=== PATIENT | female | born 1995 | race African-American/Black ===

== ENCOUNTER 2016-11-27 08:43 | Emergency (ER) | payer MEDICAID ==
[~2016-11-27] VITALS: Ht 160 cm; Wt 50.0 kg
[~2016-11-27 08:43] MED LIST: CEPH-460 PO; IBUP-232 PO; SENN1TAB PO
[2016-11-27 08:44] VITALS: BP 123/63; PULSE 72; RESP 16; TEMP 98.3; O2SAT 100
[2016-11-27 10:00] LABS: AUTOMATED NEUTROPHIL # 4.7 TH/MM3 (1.8-7.7); BASOPHIL % 0.6 % (0.0-2.0); EOSINOPHIL # 0.1 TH/MM3 (0-0.4); HEMO FLAGS DIFF FINAL; LYMPH % 28.6 % (9.0-44.0); LYMPHOCYTE # 2.1 TH/MM3 (1.0-4.8); MEAN CORPUSCULAR HEMOGLOBIN 25.7 PG (27.0-34.0); MONO % 6.3 % (0.0-8.0); NEUT % 63.5 % (16.0-70.0); PLATELET COUNT 321 TH/MM3 (150-450); RED BLOOD COUNT 4.49 MIL/MM3 (4.00-5.30); RED CELL DISTRIBUTION WIDTH 14.8 % (11.6-17.2); WHITE BLOOD COUNT 7.3 TH/MM3 (4.0-11.0)
--- NOTE | 2016-11-27 10:07 | PD ---
HPI Chief Complaint: Related Problem Time Seen by Provider: 09:16 Travel History International Travel<30 days: No Contact w/Intl Traveler<30days: No Traveled to known affect area: No History of Present Illness HPI 21-year-old female complains of vaginal pain and vaginal discharge with a strong smell. Patient states that the symptoms started a month ago. Patient states that she is late for her menstruation period this month. Patient states that her last menstruation period was October 09, 2016. Patient states that she is . Patient has not seen an physician locally for this . Patient denies any dysuria or frequency. Patient denies any fever chills. Patient denies any back pain. Patient states the vaginal pain is sharp pain intermittent pain localized in the vaginal area. Patient denies any pain radiation. On a scale of 1-10 the pain is a 7. PFSH Past Medical History Asthma: No Diminished Hearing: No Immunizations Current: Yes Seizures: Yes ?: LMP: 10/09/16 : 2 Para: 1 Social History Alcohol Use: No Tobacco Use: No Substance Use: No Allergies-Medications (Allergen,Severity, Reaction): Coded Allergies: No Known Allergies (Verified , 11/27/16) Reported Meds & Prescriptions Reported Meds & Active Scripts Active No Active Prescriptions or Reported Medications Review of Systems General / Constitutional: No: Fever Eyes: No: Visual changes HENT: No: Headaches Cardiovascular: No: Chest Pain or Discomfort Respiratory: No: Shortness of Breath Gastrointestinal: No: Abdominal Pain Genitourinary: Positive: Discharge, No: Dysuria Musculoskeletal: No: Pain Skin: No Rash Neurologic: No: Weakness Psychiatric: No: Depression Endocrine: No: Polydipsia Hematologic/Lymphatic: No: Easy Bruising Physical Exam Narrative GENERAL: Well-nourished, well-developed patient. SKIN: Focused skin assessment warm/dry. HEAD: Normocephalic. EYES: No scleral icterus. No injection or drainage. NECK: Supple, trachea midline. No JVD or lymphadenopathy. CARDIOVASCULAR: Regular rate and rhythm without murmurs, gallops, or rubs. RESPIRATORY: Breath sounds equal bilaterally. No accessory muscle use. GASTROINTESTINAL: Abdomen soft, non-tender, nondistended. MUSCULOSKELETAL: No cyanosis, or edema. BACK: Nontender without obvious deformity. No CVA tenderness. [employer] MATHEMATICS exam: Patient has whitish discharge in the vaginal vault. No cervical motion tenderness. Uterus is nonenlarged with moderate tenderness on palpation. No adnexal mass or tenderness. Data Data Last Documented VS Vital Signs Date Time Temp Pulse Resp B/P Pulse Ox O2 Delivery O2 Flow Rate FiO2 11/27/16 09:13 67 18 11/27/16 08:44 98.3 123/63 100 Room Air Orders Beta Hcg (Quant/Titer) (11/27/16 09:19) Complete Blood Count With Diff (11/27/16 09:19) Comprehensive Metabolic Panel (11/27/16 09:19) Urinalysis - C+S If Indicated (11/27/16 09:19) Iv Access Insert/Monitor (11/27/16 09:19) Ecg Monitoring (11/27/16 09:19) Gc And Chlamydia Pcr (11/27/16 09:25) Wet Prep Profile (11/27/16 09:25) Urine Culture (11/27/16 09:30) Labs Laboratory Tests Test 11/27/16 11/27/16 08:53 09:30 Clue Cells (Wet Prep) PRESENT Vaginal Trichomonas (Wet Prep) NONE SEEN Vaginal Yeast (Wet Prep) NONE SEEN Chlamydia trachomatis DNA NOT DETECTED (PCR) Neisseria gonorrhoeae DNA NOT DETECTED (PCR) White Blood Count 7.3 TH/MM3 Red Blood Count 4.49 MIL/MM3 Hemoglobin 11.6 GM/DL Hematocrit 35.0 % Mean Corpuscular Volume 78.0 FL Mean Corpuscular Hemoglobin 25.7 PG Mean Corpuscular Hemoglobin 33.0 % Concent Red Cell Distribution Width 14.8 % Platelet Count 321 TH/MM3 Mean Platelet Volume 7.7 FL Neutrophils (%) (Auto) 63.5 % Lymphocytes (%) (Auto) 28.6 % Monocytes (%) (Auto) 6.3 % Eosinophils (%) (Auto) 1.0 % Basophils (%) (Auto) 0.6 % Neutrophils # (Auto) 4.7 TH/MM3 Lymphocytes # (Auto) 2.1 TH/MM3 Monocytes # (Auto) 0.5 TH/MM3 Eosinophils # (Auto) 0.1 TH/MM3 Basophils # (Auto) 0.0 TH/MM3 CBC Comment DIFF FINAL Differential Comment Urine Color YELLOW Urine Turbidity HAZY Urine pH 6.5 Urine Specific [place] 1.024 Urine Protein 30 mg/dL Urine Glucose (UA) NEG mg/dL Urine Ketones NEG mg/dL Urine Occult Blood NEG Urine Nitrite POS Urine Bilirubin NEG Urine Urobilinogen LESS THAN 2.0 MG/DL Urine Leukocyte Esterase LARGE Urine RBC 7 /hpf Urine WBC 179 /hpf Urine WBC Clumps RARE Urine Squamous Epithelial 3 /hpf Cells Urine Bacteria MANY /hpf Urine Mucus MANY /lpf Microscopic Urinalysis Comment CULTURE INDICATED Sodium Level 139 MEQ/L Potassium Level 3.9 MEQ/L Chloride Level 107 MEQ/L Carbon Dioxide Level 26.4 MEQ/L Anion Gap 6 MEQ/L Blood Urea Nitrogen 7 MG/DL Creatinine 0.77 MG/DL Estimat Glomerular Filtration 116 ML/MIN Rate Random Glucose 78 MG/DL Calcium Level 9.2 MG/DL Total Bilirubin 0.4 MG/DL Aspartate Amino Transf 7 U/L (AST/SGOT) Alanine Aminotransferase 16 U/L (ALT/SGPT) Alkaline Phosphatase 78 U/L Total Protein 7.3 GM/DL Albumin 4.0 GM/DL Human Chorionic Gonadotropin, [id number] MIU/ML Quant MDM Medical Decision Making Medical Screen Exam Complete: Yes Emergency Medical Condition: Yes Interpretation(s) 12:10 PM. CBC within normal limit. Beta hCG [id number]. UA positive for WBC and bacteria. Clue cells present. GC chlamydia PCR negative. Differential Diagnosis Differential diagnosis including bacterial vaginosis, vaginitis, cervicitis threatened AB, ectopic . Narrative Course 21-year-old female with vaginal pain and vaginal discharge. Patient is about 6 weeks by date. Diagnosis Primary Impression: UTI (urinary tract infection) Qualified Code: N30.00 - Acute cystitis without hematuria Additional Impression: Bacterial vaginosis Patient Instructions: General Instructions Additional Instructions: Take medications as directed. Follow-up with personal physician and OB physician. Return if worse. Return immediately increased vaginal bleeding, pelvic pain. Med/Other Pt SpecificInfo: Prescription(s) given Scripts Metronidazole (Flagyl)500 Mg Dsv015 Mg PO TID #21 TAB Ref 0 Prov:William Barba MD 11/27/16 Cephalexin (Keflex)500 Mg Clx768 Mg PO Q8H #30 CAP Ref 0 Prov:William Barba MD 11/27/16 Disposition: 01 DISCHARGE HOME Condition: Stable William Barba MD Nov 27, 2016 10:07
[2016-11-27 10:17] LABS: ALT (GPT) 16 U/L (9-42); ANION GAP 6 MEQ/L (5-15); AST (GOT) 7 U/L (16-38); BICARBONATE 26.4 MEQ/L (21.0-32.0); BLOOD UREA NITROGEN 7 MG/DL (7-18); CHLORIDE 107 MEQ/L (98-107); GLOMERULAR FILTRATION RATE 116 ML/MIN (>89); POTASSIUM 3.9 MEQ/L (3.5-5.1); SODIUM (NA) 139 MEQ/L (136-145)
[2016-11-27 10:25] LABS: BACTERIA, URINE MANY /hpf; BLOOD, URINE NEG (NEG); COMMENT (UR) CULTURE INDICATED; CULTURE IF INDICATED CULTURE INDICATED; GLUCOSE,URINE NEG (NEG); KETONE, URINE NEG (NEG); MUCUS URINE MANY /lpf (OCC); PH, URINE 6.5 (5.0-8.5); SQUAMOUS EPITHELIAL CELL URINE 3 /hpf (0-5); URINE COLOR YELLOW (YELLW/STRAW)
[2016-11-27 10:26] LABS: NITRITE,URINE POS (NEG)
[2016-11-27 10:34] LABS: ALKALINE PHOSPHATASE 78 U/L (45-117); BETA HCG QUANT 103039 MIU/ML (0-5); TOTAL BILIRUBIN ADULT 0.4 MG/DL (0.2-1.0)
[2016-11-27 12:03] LABS: CHLAMYDIA PCR NOT DETECTED (NOT DETECT); NEISSERIA PCR NOT DETECTED (NOT DETECT)
[2016-11-27] MEDS ORDERED: METR-1 PO (12:15)
[2016-11-27] MEDS ORDERED: CEPH-460 PO (12:15)
== END 2016-11-27 12:45 | disposition home or self-care (01) ==
LOC: NEPE 08:43
DX: O23.41 Unspecified infection of urinary tract in pregnancy, first trimester (principal); B96.20 Unspecified Escherichia coli [E. coli] as the cause of diseases classified elsewhere; O23.591 Infection of other part of genital tract in pregnancy, first trimester; Z3A.01 Less than 8 weeks gestation of pregnancy
CPT/HCPCS: 80053; 81001; 84702; 85025; 87077; 87086; 87186; 87210; 87491; 87591; 99284